=== PATIENT | male | born 1970 | race Caucasian/White ===

== ENCOUNTER 2017-10-04 00:21 | Emergency (ER) | payer OTHER ==
[~2017-10-04] VITALS: Ht 188 cm; Wt 98.0 kg
[2017-10-04 00:39] VITALS: BP 129/86; PULSE 83; RESP 18; TEMP 99.8; O2SAT 99
[2017-10-04 02:30] VITALS: BP 144/76; PULSE 79; RESP 17; TEMP 98.6; O2SAT 99
--- NOTE | 2017-10-04 02:50 | PD ---
HPI Chief Complaint: Psychiatric Symptoms Time Seen by Provider: 00:40 Travel History International Travel<30 days: No Contact w/Intl Traveler<30days: No Traveled to known affect area: No History of Present Illness HPI 47-year-old white male presents emergency department under Gerardo act by PD. He was seen at [facility] and medically cleared. Patient is transferred here to be evaluated by the psychiatrist. Patient states that he is not truly suicidal. He had been on his way back to [place] after visiting with his mother in [place] for the last few months. He did stop by and snort cocaine with a girlfriend he had just met. He states that he does not typically do drugs. He usually drinks a lot of alcohol. Patient denies any toxic ingestions. No medical complaints. PFSH Past Medical History Narrative Medical Hypertension, hypercholesterolemia, gout, substance abuse Tetanus Vaccination: < 5 Years Past Surgical History Narrative Surgical Appendectomy Social History Alcohol Use: Yes Tobacco Use: Yes Substance Use: Yes (cocaine) Allergies-Medications (Allergen,Severity, Reaction): Coded Allergies: No Known Allergies (Unverified , 10/04/17) Review of Systems General / Constitutional: No: Fever Eyes: No: Visual changes HENT: No: Headaches Cardiovascular: No: Chest Pain or Discomfort Respiratory: No: Shortness of Breath Gastrointestinal: No: Abdominal Pain Genitourinary: No: Dysuria Musculoskeletal: No: Pain Skin: No Rash Neurologic: No: Weakness Psychiatric: Positive: Disorder of Thought, Mood Disorder, Substance Abuse, No : Anxiety, Depression, Suicidal Ideations, Homicidal Ideation Endocrine: No: Polydipsia Hematologic/Lymphatic: No: Easy Bruising Physical Exam Narrative GENERAL: Well-nourished, well-developed patient. SKIN: Warm and dry. HEAD: Normocephalic and atraumatic. EYES: No scleral icterus. No injection or drainage. ENT: No nasal drainage noted. Mucous membranes pink. Airway patent. NECK: Supple, trachea midline. Moves head freely without obvious discomfort. CARDIOVASCULAR: Regular rate and rhythm without murmurs, gallops, or rubs. RESPIRATORY: Breath sounds equal bilaterally. No accessory muscle use. GASTROINTESTINAL: Abdomen soft, non-tender, nondistended. EXTREMITIES: No cyanosis or edema. BACK: Nontender without obvious deformity. No CVA tenderness. NEURO: Patient is alert and oriented. no sensorimotor deficits. Nonfocal. Normal speech. PSYCH: No delusions. No auditory or visual hallucinations. Data Data Last Documented VS Vital Signs Date Time Temp Pulse Resp B/P (MAP) Pulse Ox O2 Delivery O2 Flow Rate FiO2 10/04/17 02:30 98.6 79 17 144/76 (98) 99 Room Air Orders Orders Psych Screen (10/04/17 00:44) MDM Medical Decision Making Medical Screen Exam Complete: Yes Emergency Medical Condition: Yes Medical Record Reviewed: Yes Differential Diagnosis MDM: High Differential diagnoses: Schizophrenia, schizoaffective disorder, bipolar, anxiety, depression, adjustment reaction, mood disorder NOS, ODD, depressive disorder NOS, dementia, dementia with agitation, psychosis NOS, substance induced mood disorder, DMDD, Asperger syndrome, infection,electrolyte abnormality, malingering. Narrative Course Mental health screening discussed with the patient. Psychiatric screen ordered. The patient is medically cleared. This is medical clearance for psychiatric admission Diagnosis Primary Impression: Medical clearance for psychiatric admission Condition: Stable Gera Pires Oct 04, 2017 02:50
[2017-10-04] MEDS ORDERED: HALO1TAB PO (03:42)
[2017-10-04] MEDS ORDERED: ALLO100T PO (03:42)
[2017-10-04] MEDS ORDERED: BENZ0.5T PO (03:42)
[2017-10-04] MEDS ORDERED: PRED20 PO (03:42)
[2017-10-04] MEDS ORDERED: LISI-515 PO (03:42)
[2017-10-04] MEDS ORDERED: DIVA500T PO (03:42)
[2017-10-04] MEDS ORDERED: SILD20TA11 PO (03:42)
[2017-10-04] MEDS ORDERED: AMLO5TAB2 PO (03:42)
[2017-10-04] MEDS ORDERED: CLOM50TA2 PO (03:42)
[2017-10-04] MEDS ORDERED: CLON0.5T PO (03:42)
[2017-10-04] MEDS ORDERED: FLUO20CA12 PO (03:42)
[2017-10-04] MEDS ORDERED: ROSU1TAB6 PO (03:42)
[2017-10-04] MEDS ORDERED: LORA1TAB12 PO (03:42)
[2017-10-04] MEDS ORDERED: TRAZ50TA12 PO (03:42)
[2017-10-04] MEDS ORDERED: FENO160T PO (03:42)
[2017-10-04] MEDS ORDERED: SERT-132 PO (03:42)
[2017-10-04] MEDS ORDERED: COLB500.5 PO (03:42)
[2017-10-04] MEDS ORDERED: NICOTINE 21 MG/24 HR PATCH T-DERMAL ONE (10:30)
[2017-10-04 10:42] VITALS: BP 149/97; PULSE 90; RESP 16; O2SAT 98
--- NOTE | 2017-10-04 12:24 | PD ---
History of Present Illness Chief Complaint: Psychiatric Symptoms Time Seen by Provider: 12:00 Travel History International Travel<30 Days: No Contact w/Intl Traveler<30days: No Known affected area: No Legal Status Legal Status: Gerardo Act Gerardo Act Signed By: LEILANI BRAUN MD [facility] Gerardo Act Comment: 10/03/2017 1039 AM History of Present Illness: History of Present Illness HPI 47-year-old white male with reported history of bipolar disorder as well as substance disorder and alcohol dependence who presents emergency department as a transfer from [facility] under Gerardo act by PD. The patient was placed under Gerardo act by a physician at [facility] and documentation indicates that patient reported " I have to brains. I wanted to and. I give up. No plan previous attempt with lacerations." Review of lab work from [facility]. Patient at the time the Gerardo act was initiated presented with blood alcohol level of 238. Positive toxicology for cocaine and benzodiazepine. Electronic medical record review. No previous contact with [facility] psychiatry. The patient was monitored in [facility]. He presented no behavioral concerns and no suicidality. Patient seen this morning. He is alert, oriented, calm, engaging and cooperative. Speech is clear, logical, normal rate, normal tone. The patient is clinically sober. There is no evidence of any payal or hypomania. Psychosis and denies any paranoia. His mood is nearly euthymic. He states that he has a problem with alcohol as well as problems with mental health. He has been diagnosed with bipolar disorder but has not been 100% compliant with medications. He admits to recent use of cocaine. He denies any suicidal or homicidal ideation, intent or plan. He tells me that he is substance abuse treatment facility on Friday. This facility is called [facility] and [facility] in [place]. The patient indicates that he is ready to make the commitment to a sober life. He also informs me he has the means to be able to get there. PFSH Past Medical History Tetanus Vaccination: < 5 Years Psychiatric History Psychiatric History Hx Psychiatric Treatment: Patient with a hx of bipolar disorder, unspecified. Has been hospitalized at [facility] psychiatry Department. Has been Gerardo acted before. History of Inpatient Treatment: Yes (most recently at [facility].) Social History Single male. Lives in [place]. Hx Alcohol Use: Yes Hx Tobacco Use: Yes Hx Substance Use: Yes (cocaine) Substance Use Type: Alcohol, Cocaine Hx of Substance Use Treatment: Yes (has had previous admissions for brief detox ) Family Psychiatric History Mother with possible bipolar disorder. Allergies-Medications (Allergen,Severity, Reaction): Coded Allergies: No Known Allergies (Unverified , 10/04/17) Reported Meds & Prescriptions Reported Meds & Active Scripts Active Reported Lorazepam 1 Mg Tab 1 Mg PO Q8H PRN Clonazepam 0.5 Mg Tab 0.5 Mg PO BID Prednisone 20 Mg Tab 60 Mg PO DAILY Clomiphene (Clomiphene Citrate) 50 Mg Tab 1 Tab PO DAILY Trazodone (Trazodone HCl) 50 Mg Tab 50 Mg PO HS Fenofibrate 160 Mg Tab 160 Mg PO DAILY Sildenafil 20 Mg Tab 20 Mg PO DAILY PRN Sertraline (Sertraline HCl) 50 Mg Tab 50 Mg PO DAILY Rosuvastatin (Rosuvastatin Calcium) 10 Mg Tab 10 Mg PO HS Probenecid-Colchicine (Probenecid/Colchicine) 0.5-500 mg Tab 1 Tab PO BID Lisinopril 20 Mg Tab 20 Mg PO DAILY Haloperidol 1 Mg Tab 1 Mg PO BID Fluoxetine (Fluoxetine HCl) 20 Mg Capsule 20 Mg PO DAILY Divalproex DR (Divalproex Sodium) 500 Mg Tabdr 500 Mg PO HS Benztropine (Benztropine Mesylate) 0.5 Mg Tab 1 Mg PO BID Amlodipine (Amlodipine Besylate) 5 Mg Tab 5 Mg PO DAILY Allopurinol 100 Mg Tab 100 Mg PO DAILY Review of Systems Psychiatric: DENIES: Anxiety, Confusion, Mood changes, Depression, Hallucinations, Agitation, Suicidal Ideation, Homicidal Ideation, Delusions Except as stated in HPI: all other systems reviewed are Neg Mental Status Examination Appearance: Appropriate Consciousness: Alert Orientation: x4 Motor Activity: Normal gait Speech: Unremarkable Language: Adequate Fund of Knowledge: Adequate Attention and Concentration: Adequate Memory: Unremarkable Mood: Appropriate Affect: Appropriate Thought Process & Associations: Intact, Logical, Goal directed Thought Content: Appropriate Hallucination Type: None Delusion Type: None Suicidal Ideation: No Suicidal Plan: No Suicidal Intention: No Homicidal Ideation: No Homicidal Plan: No Homicidal Intention: No Insight: Fair Judgment: Adequate MDM Medical Decision Making Medical Record Reviewed: Yes Assessment/Plan 47-year-old male with history of bipolar disorder, substance use disorder, alcohol dependence who while under the influence of alcohol and cocaine was placed under a Gerardo act for allegedly having made statements indicating that he wanted to end his life and give up. Once clinically sober the patient denies any suicidal or homicidal ideation, intent or plan. The patient is not manic. The patient's not psychotic. He is future oriented and has made plans to enter a 30 day rehabilitation facility in [place]. At this time the patient does not meet criteria for inpatient psychiatric treatment or for involuntary admission. The Gerardo act is lifted. Psychiatrically clear to be discharge from the ED. Orders Orders Psych Screen (10/04/17 00:44) Diet Regular Basic (10/04/17 Breakfast) Nicotine 21 Mg Patch.24 Hr (Habitrol 21 (10/04/17 10:30) Diet Regular Basic (10/04/17 Lunch) Results Vital Signs Date Time Temp Pulse Resp B/P (MAP) Pulse Ox O2 Delivery O2 Flow Rate FiO2 10/04/17 10:42 90 16 149/97 (114) 98 Room Air 10/04/17 02:30 98.6 79 17 144/76 (98) 99 Room Air 10/04/17 00:39 99.8 83 18 129/86 (100) 99 Room Air Diagnosis Primary Impression: Medical clearance for psychiatric admission Additional Impressions: Substance induced mood disorder Bipolar 1 disorder Psychiatrically Cleared: Yes Med/ Other Pt Specific Info: No Change to Meds Disposition: 01 DISCHARGE HOME Condition: Stable Problem Qualifiers Osiris Gardner Oct 04, 2017 12:24
--- NOTE | 2017-10-04 12:27 | PD ---
Physical Exam Date Seen by Provider: Oct 04, 2017 Time Seen by Provider: 12:26 Narrative 47-year-old outpatient previously medically cleared for psychiatric evaluation, has been seen and evaluated by psychiatric services and deemed psychiatrically stable for discharge at this time. Patient remains medically stable for discharge at this time. Follow-up will be as per psychiatric note. Data Data Last Documented VS Vital Signs Date Time Temp Pulse Resp B/P (MAP) Pulse Ox O2 Delivery O2 Flow Rate FiO2 10/04/17 10:42 90 16 149/97 (114) 98 Room Air 10/04/17 02:30 98.6 Orders Orders Psych Screen (10/04/17 00:44) Diet Regular Basic (10/04/17 Breakfast) Nicotine 21 Mg Patch.24 Hr (Habitrol 21 (10/04/17 10:30) Diet Regular Basic (10/04/17 Lunch) MDM Medical Record Reviewed: Yes Supervised Visit with ELIS: Yes Narrative Course 47-year-old outpatient previously medically cleared for psychiatric evaluation, has been seen and evaluated by psychiatric services and deemed psychiatrically stable for discharge at this time. Patient remains medically stable for discharge at this time. Follow-up will be as per psychiatric note. Diagnosis Primary Impression: Medical clearance for psychiatric admission Additional Impression: Substance induced mood disorder Patient Instructions: General Instructions, Suicide Prevention for Adults (ED) Departure Forms: Tests/Procedures Additional Instruction: Follow up with local primary care clinic when returning to [place]. Follow up with local mental health clinic/provider. Return to ED for any worsening. Disposition: 01 DISCHARGE HOME Condition: Stable Gareth Marie Oct 04, 2017 12:27
== END 2017-10-04 12:55 | disposition home or self-care (01) ==
LOC: NEPJ 00:21
DX: F14.14 Cocaine abuse with cocaine-induced mood disorder (principal); F31.9 Bipolar disorder, unspecified; Z79.899 Other long term (current) drug therapy
CPT/HCPCS: 99284